=== PATIENT | female | born 1950 | race Two or more races ===

== ENCOUNTER → 2017-06-08 | Outpatient (CLI) | payer MEDICARE, OTHER ==
[2017-06-08 13:22] LABS: Basophils # (auto) 0.1 uL; Eosinophils # (auto) 0.3 uL; Eosinophils % (auto) 3.7 % (0.0-7.0); Hematocrit 45.1 % (36.0-46.0); Hemoglobin 15.2 g/dL (12.2-16.2); Lymphocytes # (auto) 2.4 uL; Lymphocytes % (auto) 35.4 % (10.0-50.0); Mean Corpuscular Hgb Conc. 33.8 g/dL (32.0-36.0); Mean Corpuscular Volume 97.6 fL (80.0-100.0); Monocytes # (auto) 0.5 uL; Monocytes % (auto) 7.8 % (0.0-12.0); Neutrophils # (auto) 3.6 uL; Neutrophils % (auto) 52.1 % (37.0-80.0); Platelet Count (auto) 291 10^3/uL (140-450); Red Blood Cells 4.62 10^6/uL (4.0-5.20); Red Cell Distribution Width 13.3 % (11.8-14.3); White Blood Cell 6.8 10^3/uL (4.4-10.8)
[2017-06-08 14:21] LABS: Albumin 3.8 g/dL (3.4-5.0); BUN/Creatinine Ratio 37.5; Bilirubin, Total 0.3 mg/dL (0.2-1.0); Calcium 8.9 mg/dL (8.5-10.1); Potassium 3.9 mmol/L (3.5-5.1); Total Protein 7.7 g/dL (6.4-8.2)
[2017-06-08 14:23] LABS: Urine Bacteria NONE SEEN /hpf (None Seen); Urine Blood 1+ /uL (Negative); Urine Mucus FEW (None Seen); Urine Specific Gravity 1.017 (1.001-1.035); Urine WBC <1 /hpf (0 - 5)
== END | disposition home or self-care (01) ==
LOC: LAB 12:34
PROVIDERS: ATTEND Physician Assistant
DX: Z00.01 Encounter for general adult medical examination with abnormal findings (principal); R42 Dizziness and giddiness; G43.909 Migraine, unspecified, not intractable, without status migrainosus; N20.0 Calculus of kidney; M17.12 Unilateral primary osteoarthritis, left knee; R01.1 Cardiac murmur, unspecified; R79.89 Other specified abnormal findings of blood chemistry; Z86.39 Personal history of other endocrine, nutritional and metabolic disease
CPT/HCPCS: 36415; 80053; 80061; 81001; 83036; 85025

== ENCOUNTER → 2017-06-16 | Outpatient (CLI) | payer MEDICARE, OTHER | END | disposition home or self-care (01) | LOC: LAB 10:53 | PROVIDERS: ATTEND Physician Assistant | DX: Z12.11 Encounter for screening for malignant neoplasm of colon (principal) | CPT/HCPCS: 82270 ==

== ENCOUNTER → 2017-07-15 | Outpatient (CLI) | payer MEDICARE, OTHER | END | disposition home or self-care (01) | LOC: XY 09:28 | PROVIDERS: ATTEND Internal Medicine | DX: I10 Essential (primary) hypertension (principal); E78.5 Hyperlipidemia, unspecified | CPT/HCPCS: 93306 ==

== ENCOUNTER 2017-10-14 07:48 | Inpatient (IN) | payer MEDICARE, OTHER ==
[~2017-10-14] VITALS: Ht 165.1 cm; Wt 67.0 kg
[2017-10-14] MEDS ORDERED: METOCLOPRAMIDE HCL 5MG/ml INJ 2ml VIAL IV ONE (09:30)
[2017-10-14] MEDS ORDERED: KETOROLAC TROMETH 30 MG/ML 1ML VIAL IV ONE (09:30)
[2017-10-14 09:37] LABS: Albumin 3.6 g/dL (3.4-5.0); Calcium 8.7 mg/dL (8.5-10.1); Potassium 4.1 mmol/L (3.5-5.1)
[2017-10-14] MEDS ORDERED: SODIUM CHLORIDE 0.9% 1,000 ML IVB ONE (09:37)
[2017-10-14 09:38] LABS: Urine Bacteria FEW /hpf (None Seen); Urine Blood 3+ /uL (Negative); Urine Mucus FEW (None Seen); Urine Specific Gravity 1.019 (1.001-1.035); Urine WBC 231 /hpf (0 - 5)
[2017-10-14 09:39] LABS: Bilirubin, Total 0.4 mg/dL (0.2-1.0); Total Protein 6.9 g/dL (6.4-8.2)
[2017-10-14 09:41] LABS: INR 0.93 (0.9-1.15); Partial Thromboplastin Time 28.5 sec (23.78-33.04)
[2017-10-14 09:56] LABS: Basophils # (auto) 0.1 uL; Basophils % (auto) 0.7 % (0.0-2.0); Eosinophils # (auto) 0.4 uL; Eosinophils % (auto) 3.3 % (0.0-7.0); Hematocrit 43.1 % (36.0-46.0); Hemoglobin 14.3 g/dL (12.2-16.2); Lymphocytes # (auto) 1.9 uL; Lymphocytes % (auto) 15.7 % (10.0-50.0); Mean Corpuscular Hemoglobin 33.1 pg (28.0-32.0); Mean Corpuscular Hgb Conc. 33.1 g/dL (32.0-36.0); Mean Corpuscular Volume 99.8 fL (80.0-100.0); Monocytes # (auto) 0.7 uL; Monocytes % (auto) 5.7 % (0.0-12.0); Neutrophils # (auto) 8.9 uL; Neutrophils % (auto) 74.6 % (37.0-80.0); Platelet Count (auto) 239 10^3/uL (140-450); Red Blood Cells 4.32 10^6/uL (4.0-5.20); Red Cell Distribution Width 13.1 % (11.8-14.3)
[2017-10-14 09:58] LABS: Magnesium 2.4 mg/dL (1.6-2.6)
[2017-10-14] MEDS ORDERED: MORPHINE SULFATE 4 MG/ML SYR/VIAL IV ONE (10:00)
[2017-10-14] MEDS ORDERED: cefTRIAXone 1GM/10ml IVPUSH 10 ML IV ONE ×2 (11:45→13:00)
[2017-10-14] MEDS ORDERED: NITROGLYCERIN 0.4 MG SL TAB SL PRN (13:00)
[2017-10-14] MEDS ORDERED: TEMAZEPAM 15 MG CAP PO PRN (13:00)
[2017-10-14] MEDS ORDERED: MORPHINE SULF INJ 2 MG/ML SYRINGE 1ML IV PRN (13:00)
[2017-10-14] MEDS ORDERED: ACETAMINOPHEN 500 MG TAB PO PRN (13:00)
[2017-10-14] MEDS ORDERED: HYDROcodone-ACET 5/325MG TAB PO PRN (13:00)
[2017-10-14] MEDS ORDERED: LORazepam 0.5 MG TAB PO PRN (13:00)
[2017-10-14] MEDS: SODIUM CHLORIDE 0.9% 1,000 ML IV SCH (13:15)
[2017-10-14] MEDS ORDERED: DIVA250T51 PO (14:56)
[2017-10-14] MEDS ORDERED: ACET5SOL5 PO (14:56)
[2017-10-14] MEDS ORDERED: RIZA10TA24 OR (14:56)
[2017-10-14] MEDS ORDERED: PROP60CA34 PO (14:56)
[2017-10-14] MEDS ORDERED: ROSU20TA14 PO (14:56)
[2017-10-14] MEDS ORDERED: DIAZ2TAB PO (14:56)
[2017-10-14] MEDS ORDERED: MANNITOL FTV 25% 12.5 GM/50 ML 50 ML IV ONE ×2 (18:15→19:45)
[2017-10-14 18:30] VITALS: BP 124/69
[2017-10-14] MEDS: TAMSULOSIN HYDROCHLORIDE 0.4 MG CAP PO SCH (19:45)
[2017-10-14 21:59] VITALS: BP 149/83
[2017-10-14 22:00] VITALS: BP 105/55
[2017-10-15] MEDS: SODIUM CHLORIDE 0.9% 1,000 ML IV SCH ×3 (03:42→20:13)
[2017-10-15] MEDS: MORPHINE SULF INJ 2 MG/ML SYRINGE 1ML IV PRN ×3 (04:18→18:54)
[2017-10-15 05:00] VITALS: BP 112/60
[2017-10-15 07:02] LABS: Eosinophils # (auto) 0.2 uL; Hemoglobin 12.9 g/dL (12.2-16.2); Lymphocytes # (auto) 2.2 uL; Monocytes # (auto) 0.7 uL; Nucleated Red Blood Cells % 0.1 %; White Blood Cell 6.5 10^3/uL (4.4-10.8)
[2017-10-15 07:04] LABS: Basophils # (auto) 0 uL; Basophils % (auto) 0.7 % (0.0-2.0); Eosinophils % (auto) 2.9 % (0.0-7.0); Hematocrit 36.7 % (36.0-46.0); Lymphocytes % (auto) 33.3 % (10.0-50.0); Mean Corpuscular Hgb Conc. 35.1 g/dL (32.0-36.0); Mean Corpuscular Volume 99.8 fL (80.0-100.0); Monocytes % (auto) 11.3 % (0.0-12.0); Neutrophils # (auto) 3.4 uL; Neutrophils % (auto) 51.8 % (37.0-80.0); Platelet Count (auto) 192 10^3/uL (140-450); Red Blood Cells 3.67 10^6/uL (4.0-5.20); Red Cell Distribution Width 13.1 % (11.8-14.3)
[2017-10-15 07:33] LABS: Albumin 3.1 g/dL (3.4-5.0); BUN/Creatinine Ratio 44.9; Bilirubin, Total 0.4 mg/dL (0.2-1.0); Potassium 3.8 mmol/L (3.5-5.1); Total Protein 5.9 g/dL (6.4-8.2)
[2017-10-15 07:55] VITALS: BP 119/63
[2017-10-15 09:00] VITALS: BP 119/63
[2017-10-15] MEDS: cefTRIAXone 1GM/10ml IVPUSH 10 ML IV SCH (09:46)
[2017-10-15] MEDS: PANTOPRAZOLE 40 MG TAB PO SCH (09:46)
[2017-10-15] MEDS ORDERED: MANNITOL FTV 25% 12.5 GM/50 ML 50 ML IV ONE (10:30)
[2017-10-15] MEDS: KETOROLAC TROMETH 30 MG/ML 1ML VIAL IV PRN ×2 (10:36→22:21)
[2017-10-15 13:00] VITALS: BP 132/58
[2017-10-15] MEDS ORDERED: DIAZEPAM 2 MG TAB PO PRN (16:30)
[2017-10-15 16:56] VITALS: BP 137/73
[2017-10-15] MEDS: TAMSULOSIN HYDROCHLORIDE 0.4 MG CAP PO SCH (18:53)
[2017-10-15] MEDS: PROMETHAZINE HCL 25 MG/ML 1ML IV PRN (18:54)
[2017-10-15 22:00] VITALS: BP 134/69
[2017-10-15] MEDS: PROPRANOLOL HCL 20 MG TAB PO SCH (22:00)
[2017-10-16] MEDS: KETOROLAC TROMETH 30 MG/ML 1ML VIAL IV PRN ×4 (03:27→22:15)
[2017-10-16 04:31] VITALS: BP 136/78
[2017-10-16] MEDS: MORPHINE SULF INJ 2 MG/ML SYRINGE 1ML IV PRN ×4 (05:13→18:50)
[2017-10-16] MEDS: SODIUM CHLORIDE 0.9% 1,000 ML IV SCH ×3 (05:15→23:50)
[2017-10-16 09:24] VITALS: BP 131/75
[2017-10-16] MEDS: cefTRIAXone 1GM/10ml IVPUSH 10 ML IV SCH (09:31)
[2017-10-16] MEDS: PANTOPRAZOLE 40 MG TAB PO SCH (09:33)
[2017-10-16] MEDS: PROPRANOLOL HCL 20 MG TAB PO SCH ×2 (09:33→21:41)
[2017-10-16 13:34] VITALS: BP 157/77
[2017-10-16 17:24] VITALS: BP 124/71
[2017-10-16] MEDS: PROMETHAZINE HCL 25 MG/ML 1ML IV PRN ×2 (18:49→23:47)
[2017-10-16] MEDS: TAMSULOSIN HYDROCHLORIDE 0.4 MG CAP PO SCH (18:49)
[2017-10-16] MEDS ORDERED: MORPHINE SULF INJ 2 MG/ML SYRINGE 1ML IV PRN (21:00)
[2017-10-16 22:00] VITALS: BP 160/73
[2017-10-17] MEDS: KETOROLAC TROMETH 30 MG/ML 1ML VIAL IV PRN ×2 (04:34→09:48)
[2017-10-17 05:00] VITALS: BP 134/72
[2017-10-17] MEDS ORDERED: ceFAZolin 1GM/50ML 50 ML IV ONE (07:10)
[2017-10-17] MEDS ORDERED: MIDAZOLAM HCL 1MG/1ML-2 ML VIAL ONE (07:25)
[2017-10-17] MEDS ORDERED: PROPOFOL 10 MG/ML 20 ML IV ONE (07:26)
[2017-10-17] MEDS ORDERED: ETOMIDATE (2MG/ML) 20ML VIAL IV ONE (07:27)
[2017-10-17] MEDS ORDERED: fentaNYL CITRATE 100 MCG/2 ML VL ONE (07:36)
[2017-10-17] MEDS ORDERED: ePHEDrine SULFATE 50 MG/ML AMP ONE (07:49)
[2017-10-17] MEDS ORDERED: LIDOCAINE 2% (LOCAL ANESTH.) PF 5ml SDV ONE (07:49)
[2017-10-17] MEDS ORDERED: DEXAMETHASONE SOD PHOS 10MG/1ML VIAL INJ ONE (07:49)
[2017-10-17] MEDS ORDERED: HYDROmorphone HCL 2 MG/ML VL IV PRN (08:15)
[2017-10-17] MEDS ORDERED: ONDANSETRON HCL 4 MG/2 ML VIAL IV ONE (08:15)
[2017-10-17] MEDS ORDERED: LABETALOL HCL 5 MG/ML 4ML SYRINGE IV PRN (08:15)
[2017-10-17] MEDS ORDERED: ePHEDrine SULFATE 50 MG/ML AMP IV PRN (08:15)
[2017-10-17] MEDS: cefTRIAXone 1GM/10ml IVPUSH 10 ML IV SCH (09:47)
[2017-10-17] MEDS: PANTOPRAZOLE 40 MG TAB PO SCH (09:49)
[2017-10-17] MEDS: PROPRANOLOL HCL 20 MG TAB PO SCH (09:49)
[2017-10-17 09:57] VITALS: BP 145/71
[2017-10-17] MEDS: SODIUM CHLORIDE 0.9% 1,000 ML IV SCH (10:57)
[2017-10-17 12:28] VITALS: BP 136/72
== END 2017-10-17 15:15 | disposition home or self-care (01) | DRG 691 ==
LOC: ER 07:48 → TELE 07:49 → TELE-WESTW 18:25
PROVIDERS: ADMIT Internal Medicine; ATTEND Family Medicine
PROC: 0TF6XZZ Fragmentation in Right Ureter, External Approach (ICD-10-PCS; principal; 2017-10-17 07:21)
DX: N13.2 Hydronephrosis with renal and ureteral calculous obstruction (principal); F17.210 Nicotine dependence, cigarettes, uncomplicated; N39.0 Urinary tract infection, site not specified; I35.0 Nonrheumatic aortic (valve) stenosis; I70.8 Atherosclerosis of other arteries; M19.079 Primary osteoarthritis, unspecified ankle and foot; K57.30 Diverticulosis of large intestine without perforation or abscess without bleeding; M47.896 Other spondylosis, lumbar region; M51.16 Intervertebral disc disorders with radiculopathy, lumbar region; Z82.3 Family history of stroke; Z82.49 Family history of ischemic heart disease and other diseases of the circulatory system; Z82.61 Family history of arthritis; Z83.3 Family history of diabetes mellitus; Z88.2 Allergy status to sulfonamides
CPT/HCPCS: 36415; 71045; 74176; 80053; 81001; 83690; 83735; 85025; 85610; 85730; 87070; 87086; 87205; 96361; 96374; 96375; J0690; J0696; J1100; J1885; J2001; J2250; J2704

== ENCOUNTER → 2018-02-03 | Outpatient (CLI) | payer MEDICARE, OTHER ==
[~2018-02-03] MED LIST: ACET5SOL5 PO; DIAZ2TAB PO; DIVA250T51 PO; PROP60CA34 PO; RIZA10TA24 OR; ROSU20TA14 PO
== END | disposition home or self-care (01) ==
LOC: XYW 09:51
PROVIDERS: ATTEND Internal Medicine
DX: I35.0 Nonrheumatic aortic (valve) stenosis (principal)
CPT/HCPCS: 93306

== ENCOUNTER → 2018-11-09 | Outpatient (CLI) | payer MEDICARE, OTHER ==
[2018-11-09 11:45] LABS: Basophils # (auto) 0.1 uL; Basophils % (auto) 0.9 % (0.0-2.0); Eosinophils # (auto) 0.5 uL; Eosinophils % (auto) 6.4 % (0.0-7.0); Hematocrit 41.4 % (36.0-46.0); Hemoglobin 14.1 g/dL (12.2-16.2); Lymphocytes # (auto) 2.1 uL; Lymphocytes % (auto) 26.3 % (10.0-50.0); Mean Corpuscular Volume 99.9 fL (80.0-100.0); Monocytes # (auto) 0.7 uL; Monocytes % (auto) 8.2 % (0.0-12.0); Neutrophils # (auto) 4.7 uL; Neutrophils % (auto) 58.2 % (37.0-80.0); Nucleated Red Blood Cells % 0.1 %; Platelet Count (auto) 221 10^3/uL (140-450); Red Blood Cells 4.14 10^6/uL (4.0-5.20); Red Cell Distribution Width 12.7 % (11.8-14.3)
[2018-11-09 12:16] LABS: Albumin 3.6 g/dL (3.4-5.0); BUN/Creatinine Ratio 46.7; Calcium 8.9 mg/dL (8.5-10.1); Potassium 4.1 mmol/L (3.5-5.1)
[2018-11-09 12:21] LABS: Bilirubin, Total 0.4 mg/dL (0.2-1.0)
== END | disposition home or self-care (01) ==
LOC: LAB 11:08
PROVIDERS: ATTEND Physician Assistant
DX: I35.0 Nonrheumatic aortic (valve) stenosis (principal); E78.5 Hyperlipidemia, unspecified; I10 Essential (primary) hypertension; R01.1 Cardiac murmur, unspecified
CPT/HCPCS: 36415; 80053; 80061; 85025

== ENCOUNTER → 2018-12-29 | Outpatient (CLI) | payer MEDICARE, OTHER | END | disposition home or self-care (01) | LOC: XYW 11:04 | PROVIDERS: ATTEND Internal Medicine | DX: I35.1 Nonrheumatic aortic (valve) insufficiency (principal); I10 Essential (primary) hypertension | CPT/HCPCS: 93306 ==

== ENCOUNTER → 2019-05-12 | Outpatient (CLI) | payer MEDICARE, OTHER | END | disposition home or self-care (01) | LOC: XYW 09:42 | PROVIDERS: ATTEND Internal Medicine | DX: I70.0 Atherosclerosis of aorta (principal); I35.0 Nonrheumatic aortic (valve) stenosis; I10 Essential (primary) hypertension | CPT/HCPCS: 93306 ==

== ENCOUNTER → 2019-11-29 | Outpatient (CLI) | payer MEDICARE, OTHER ==
[~2019-11-29] MED LIST changes: -RIZA10TA24 OR; +RIZA10TA50 OR
[2019-11-29 12:02] LABS: Basophils # (auto) 0.1 10 ^3/uL (0-0.2); Basophils % (auto) 0.7 % (0.0-2.0); Eosinophils # (auto) 0.5 10 ^3/uL (0-0.8); Eosinophils % (auto) 7.4 % (0.0-7.0); Hematocrit 40.8 % (36.0-46.0); Hemoglobin 13.9 g/dL (12.2-16.2); Lymphocytes # (auto) 1.9 10 ^3/uL (0.4-5.4); Lymphocytes % (auto) 25.8 % (10.0-50.0); Mean Corpuscular Hgb Conc. 34.1 g/dL (32.0-36.0); Mean Corpuscular Volume 96.8 fL (80.0-100.0); Monocytes # (auto) 0.6 10 ^3/uL (0-1.3); Monocytes % (auto) 8.3 % (0.0-12.0); Neutrophils # (auto) 4.3 10 ^3/uL (1.6-8.6); Neutrophils % (auto) 57.8 % (37.0-80.0); Nucleated Red Blood Cells % 0.1 %; Platelet Count (auto) 305 10^3/uL (140-450); Red Blood Cells 4.22 10^6/uL (4.0-5.20); Red Cell Distribution Width 13.4 % (11.8-14.3); White Blood Cell 7.4 10^3/uL (4.4-10.8)
[2019-11-29 12:20] LABS: Potassium 4.1 mmol/L (3.5-5.1)
[2019-11-29 12:30] LABS: Albumin 3.5 g/dL (3.4-5.0); BUN/Creatinine Ratio 44.8; Bilirubin, Total 0.4 mg/dL (0.2-1.0); Calcium 8.8 mg/dL (8.5-10.1); Total Protein 6.9 g/dL (6.4-8.2)
== END | disposition home or self-care (01) ==
LOC: LAB 11:22
PROVIDERS: ATTEND Physician Assistant
DX: I10 Essential (primary) hypertension (principal); G43.909 Migraine, unspecified, not intractable, without status migrainosus; E78.5 Hyperlipidemia, unspecified; R01.1 Cardiac murmur, unspecified
CPT/HCPCS: 36415; 80053; 80061; 85025

== ENCOUNTER → 2020-04-25 | Outpatient (CLI) | payer MEDICARE, OTHER ==
[~2020-04-25] MED LIST changes: +DIVA250T4 PO; -DIVA250T51 PO
== END | disposition home or self-care (01) ==
LOC: XYW 11:19
PROVIDERS: ATTEND Internal Medicine
DX: I08.3 Combined rheumatic disorders of mitral, aortic and tricuspid valves (principal); I70.0 Atherosclerosis of aorta
CPT/HCPCS: 93306

== ENCOUNTER 2020-07-04 07:08 | Day surgery (SDC) | payer MEDICARE, OTHER ==
[2020-07-02 10:02] LABS: Basophils # (auto) 0.1 10 ^3/uL (0-0.2); Basophils % (auto) 1.1 % (0.0-2.0); Eosinophils # (auto) 0.9 10 ^3/uL (0-0.8); Eosinophils % (auto) 10.9 % (0.0-7.0); Hematocrit 41.7 % (36.0-46.0); Hemoglobin 14.2 g/dL (12.2-16.2); Lymphocytes # (auto) 2.9 10 ^3/uL (0.4-5.4); Lymphocytes % (auto) 37.5 % (10.0-50.0); Mean Corpuscular Hemoglobin 32.8 pg (28.0-32.0); Mean Corpuscular Hgb Conc. 34.2 g/dL (32.0-36.0); Monocytes # (auto) 0.8 10 ^3/uL (0-1.3); Monocytes % (auto) 10.3 % (0.0-12.0); Neutrophils # (auto) 3.1 10 ^3/uL (1.6-8.6); Neutrophils % (auto) 40.2 % (37.0-80.0); Nucleated Red Blood Cells % 0.1 %; Platelet Count (auto) 291 10^3/uL (140-450); Red Blood Cells 4.34 10^6/uL (4.0-5.20); Red Cell Distribution Width 13.9 % (11.8-14.3); White Blood Cell 7.8 10^3/uL (4.4-10.8)
[2020-07-02 10:13] LABS: INR 0.97 (0.9-1.15); Partial Thromboplastin Time 26.7 sec (23.0-31.2)
[2020-07-02 10:24] LABS: Potassium 5.2 mmol/L (3.5-5.1)
[2020-07-02 10:33] LABS: Albumin 3.8 g/dL (3.4-5.0); Bilirubin, Total 0.5 mg/dL (0.2-1.0); Calcium 9.4 mg/dL (8.5-10.1); Total Protein 7.3 g/dL (6.4-8.2)
[~2020-07-04] VITALS: Ht 160 cm; Wt 61.2 kg
[~2020-07-04 07:08] MED LIST changes: -ACET5SOL5 PO; -DIAZ2TAB PO; +FREM225I2 SC; +MECL25TA18 PO; +OMEP20TA PO; +ONDA-144 TL; +PROP40TA59 PO; -PROP60CA34 PO; -RIZA10TA50 OR; +RIZA10TA50 PO; +TRAM50TA2 PO
[2020-07-04] MEDS ORDERED: ALPRAZolam 0.5 MG TAB PO ONE (08:00)
[2020-07-04] MEDS ORDERED: ALPRAZolam 0.5 MG TAB ONE (08:16)
[2020-07-04] MEDS ORDERED: IODIXANOL 320MG/ML 100ML BTL IV ONE (08:22)
[2020-07-04] MEDS ORDERED: LIDOCAINE 2%HCL (LOCAL ANESTH.) INJ 20ML MDV ONE (08:22)
[2020-07-04] MEDS ORDERED: ANGIOMAX 250 MG VIAL IV ONE (08:37)
[2020-07-04] MEDS ORDERED: fentaNYL CITRATE 100 MCG/2 ML VL ONE ×2 (08:37→09:59)
[2020-07-04] MEDS ORDERED: HEPARIN SODIUM (PORCINE) 5000 UNITS/ML 1ML VIAL ONE ×2 (08:37→09:26)
[2020-07-04] MEDS ORDERED: VERAPAMIL 2.5MG/ML INJ 2ML VIAL IV ONE (08:37)
[2020-07-04] MEDS ORDERED: SODIUM CHL 0.9% 0 ML ONE (08:38)
[2020-07-04] MEDS ORDERED: MIDAZOLAM HCL 1MG/1ML-2 ML VIAL ONE ×3 (08:38→10:00)
[2020-07-04] MEDS ORDERED: diphenhdrAMINE HCL 50 MG/1 ML VL ONE (09:05)
[2020-07-04] MEDS ORDERED: ACETAMINOPHEN 500 MG TAB PO PRN (11:00)
[2020-07-04] MEDS ORDERED: ONDANSETRON HCL 4 MG/2 ML VIAL IV PRN (11:00)
== END 2020-07-04 14:52 | disposition home or self-care (01) ==
LOC: CATH 07:08
PROVIDERS: ATTEND Internal Medicine
DX: I25.10 Atherosclerotic heart disease of native coronary artery without angina pectoris (principal); I35.0 Nonrheumatic aortic (valve) stenosis; I10 Essential (primary) hypertension; E78.5 Hyperlipidemia, unspecified; F17.210 Nicotine dependence, cigarettes, uncomplicated; Z20.822 Contact with and (suspected) exposure to COVID-19; Z98.890 Other specified postprocedural states; Z79.899 Other long term (current) drug therapy; Z88.8 Allergy status to other drugs, medicaments and biological substances; Z88.5 Allergy status to narcotic agent
CPT/HCPCS: 36415; 80053; 85025; 85610; 85730; 93460; 93571; C1751; C1760; C1769; C1894; J1200; J1644; J2250; J3010; J7030; Q9967; U0003; 99152; 99153

== ENCOUNTER → 2021-02-11 | Outpatient (CLI) | payer MEDICARE, OTHER ==
[2021-02-11 15:19] LABS: Basophils # (auto) 0.1 10 ^3/uL (0-0.2); Basophils % (auto) 0.9 % (0.0-2.0); Eosinophils # (auto) 0.8 10 ^3/uL (0-0.8); Eosinophils % (auto) 9.5 % (0.0-7.0); Hematocrit 40.8 % (36.0-46.0); Hemoglobin 13.6 g/dL (12.2-16.2); Lymphocytes # (auto) 2.6 10 ^3/uL (0.4-5.4); Lymphocytes % (auto) 31.7 % (10.0-50.0); Mean Corpuscular Hemoglobin 31.6 pg (28.0-32.0); Mean Corpuscular Hgb Conc. 33.3 g/dL (32.0-36.0); Mean Corpuscular Volume 95.1 fL (80.0-100.0); Monocytes # (auto) 0.9 10 ^3/uL (0-1.3); Monocytes % (auto) 10.4 % (0.0-12.0); Neutrophils # (auto) 3.9 10 ^3/uL (1.6-8.6); Neutrophils % (auto) 47.5 % (37.0-80.0); Red Blood Cells 4.29 10^6/uL (4.0-5.20); Red Cell Distribution Width 13.5 % (11.8-14.3); White Blood Cell 8.2 10^3/uL (4.4-10.8)
[2021-02-11 15:36] LABS: Albumin 3.8 g/dL (3.4-5.0); Potassium 4.7 mmol/L (3.5-5.1)
[2021-02-11 15:54] LABS: BUN/Creatinine Ratio 44.1; Bilirubin, Total 0.4 mg/dL (0.2-1.0); Calcium 9.2 mg/dL (8.5-10.1); Total Protein 6.8 g/dL (6.4-8.2)
== END | disposition home or self-care (01) ==
LOC: LAB 14:48
PROVIDERS: ATTEND Nurse Practitioner Family
DX: I10 Essential (primary) hypertension (principal); E78.5 Hyperlipidemia, unspecified; I25.10 Atherosclerotic heart disease of native coronary artery without angina pectoris
CPT/HCPCS: 36415; 80053; 80061; 85025

== ENCOUNTER → 2021-03-07 | Outpatient (CLI) | payer MEDICARE, OTHER ==
[2021-03-07 14:52] LABS: BUN/Creatinine Ratio 44.1; Potassium 4.6 mmol/L (3.5-5.1)
== END | disposition home or self-care (01) ==
LOC: LAB 13:07
DX: I35.0 Nonrheumatic aortic (valve) stenosis (principal)
CPT/HCPCS: 36415; 80048

== ENCOUNTER 2021-11-29 16:38 | Emergency (ER) | payer MEDICARE, OTHER ==
[~2021-11-29] VITALS: Ht 160 cm; Wt 63.2 kg
[2021-11-29 19:22] LABS: Urine Bacteria FEW /hpf (None Seen); Urine Blood 2+ /uL (Negative); Urine Specific Gravity 1.005 (1.001-1.035); Urine WBC 28 /hpf (0 - 5)
[2021-11-29] MEDS ORDERED: PHENAZOPYRIDINE HCL 100 MG TAB PO ONE (21:45)
[2021-11-29] MEDS ORDERED: IBUPROFEN 600 MG TAB PO ONE (21:45)
[2021-11-30] MEDS ORDERED: CEPH-510 PO (00:43)
[2021-11-30] MEDS ORDERED: TAM04C PO (00:43)
[2021-11-30] MEDS ORDERED: CEPHALEXIN 250 MG CAP PO ONE (00:45)
[2021-11-30 01:05] VITALS: BP 154/85
== END 2021-11-30 01:11 | disposition home or self-care (01) ==
LOC: ER 16:38
DX: N39.0 Urinary tract infection, site not specified (principal); N20.0 Calculus of kidney; G89.29 Other chronic pain; M54.9 Dorsalgia, unspecified; F17.210 Nicotine dependence, cigarettes, uncomplicated; Z90.89 Acquired absence of other organs; Z79.899 Other long term (current) drug therapy; Z88.5 Allergy status to narcotic agent; Z88.2 Allergy status to sulfonamides; Z88.8 Allergy status to other drugs, medicaments and biological substances
CPT/HCPCS: 74176; 81001

== ENCOUNTER → 2021-12-30 | Outpatient (CLI) | payer MEDICARE, OTHER ==
[~2021-12-30] MED LIST changes: +CEPH-510 PO; +TAM04C PO
== END | disposition home or self-care (01) ==
LOC: XYW 12:46
PROVIDERS: ATTEND Internal Medicine
DX: I08.2 Rheumatic disorders of both aortic and tricuspid valves (principal); Z95.2 Presence of prosthetic heart valve
CPT/HCPCS: 93306

== ENCOUNTER → 2021-12-30 | Outpatient (CLI) | payer MEDICARE, OTHER ==
[2021-12-30 14:15] LABS: Basophils # (auto) 0.1 10 ^3/uL (0-0.2); Eosinophils # (auto) 0.2 10 ^3/uL (0-0.8); Eosinophils % (auto) 2.2 % (0.0-7.0); Hematocrit 34.8 % (36.0-46.0); Hemoglobin 11.3 g/dL (12.2-16.2); Lymphocytes # (auto) 2.1 10 ^3/uL (0.4-5.4); Lymphocytes % (auto) 18.2 % (10.0-50.0); Mean Corpuscular Hemoglobin 29.7 pg (28.0-32.0); Mean Corpuscular Hgb Conc. 32.4 g/dL (32.0-36.0); Mean Corpuscular Volume 91.6 fL (80.0-100.0); Monocytes # (auto) 1.1 10 ^3/uL (0-1.3); Monocytes % (auto) 9.3 % (0.0-12.0); Neutrophils # (auto) 7.8 10 ^3/uL (1.6-8.6); Neutrophils % (auto) 69.3 % (37.0-80.0); Nucleated Red Blood Cells % 0.1 %; Red Cell Distribution Width 15.5 % (11.8-14.3); White Blood Cell 11.3 10^3/uL (4.4-10.8)
[2021-12-30 14:59] LABS: Albumin 2.9 g/dL (3.4-5.0); Calcium 8.6 mg/dL (8.5-10.1); Potassium 3.5 mmol/L (3.5-5.1)
[2021-12-30 15:06] LABS: BUN/Creatinine Ratio 37.8; Bilirubin, Total 0.5 mg/dL (0.2-1.0); Total Protein 6.6 g/dL (6.4-8.2)
== END | disposition home or self-care (01) ==
LOC: LAB 13:56
PROVIDERS: ATTEND Nurse Practitioner Family
DX: I10 Essential (primary) hypertension (principal); E78.5 Hyperlipidemia, unspecified
CPT/HCPCS: 36415; 80053; 80061; 85025

== ENCOUNTER 2022-02-06 06:33 | Inpatient (IN) | payer MEDICARE, OTHER ==
[2022-02-05 15:40] LABS: Basophils # (auto) 0.1 10 ^3/uL (0-0.2); Basophils % (auto) 1.4 % (0.0-2.0); Eosinophils # (auto) 0.2 10 ^3/uL (0-0.8); Eosinophils % (auto) 2.5 % (0.0-7.0); Hematocrit 36.6 % (36.0-46.0); Hemoglobin 11.9 g/dL (12.2-16.2); Lymphocytes # (auto) 2.3 10 ^3/uL (0.4-5.4); Lymphocytes % (auto) 31.2 % (10.0-50.0); Mean Corpuscular Hemoglobin 28.6 pg (28.0-32.0); Mean Corpuscular Hgb Conc. 32.7 g/dL (32.0-36.0); Mean Corpuscular Volume 87.5 fL (80.0-100.0); Monocytes # (auto) 0.5 10 ^3/uL (0-1.3); Monocytes % (auto) 6.6 % (0.0-12.0); Neutrophils # (auto) 4.2 10 ^3/uL (1.6-8.6); Neutrophils % (auto) 58.3 % (37.0-80.0); Nucleated Red Blood Cells % 0.1 %; Red Blood Cells 4.18 10^6/uL (4.0-5.20); Red Cell Distribution Width 16.4 % (11.8-14.3); White Blood Cell 7.3 10^3/uL (4.4-10.8)
[2022-02-05 16:02] LABS: INR 0.95 (0.9-1.15); Partial Thromboplastin Time 26.5 sec (24.6-33.4); Urine Bacteria NONE SEEN /hpf (None Seen); Urine Blood Negative /uL (Negative); Urine Hyaline Cast FEW /lpf (0 - 2); Urine Mucus FEW (None Seen); Urine Specific Gravity 1.025 (1.001-1.035); Urine WBC 3 /hpf (0 - 5)
[2022-02-05 16:16] LABS: Albumin 3.6 g/dL (3.4-5.0); BUN/Creatinine Ratio 37.5; Calcium 9.1 mg/dL (8.5-10.1)
[2022-02-05 16:19] LABS: Bilirubin, Total 0.3 mg/dL (0.2-1.0); Total Protein 7.3 g/dL (6.4-8.2)
[~2022-02-06] VITALS: Ht 160 cm; Wt 66.0 kg
[~2022-02-06 06:33] MED LIST changes: -CEPH-510 PO; -DIVA250T4 PO; -FREM225I2 SC; +OXYC325T14 PO; -TAM04C PO; -TRAM50TA2 PO
[2022-02-06] MEDS ORDERED: CHLORHEXIDINE 4% TOPICAL soln 118ml TOP ONE (06:56)
[2022-02-06] MEDS ORDERED: NITROGLYCERIN 0.4 MG SL TAB SL PRN (07:15)
[2022-02-06] MEDS ORDERED: RIZATRIPTAN BENZOATE 10 MG PO PRN (07:15)
[2022-02-06] MEDS ORDERED: HYDROmorphone HCL 2 MG/ML VL/or syr IV PRN (07:15)
[2022-02-06] MEDS ORDERED: D5W/SOD CHL 0.45% 1,000 ML IV SCH (07:15)
[2022-02-06] MEDS ORDERED: HYDROcodone-ACET 10/325MG TAB PO PRN (07:15)
[2022-02-06] MEDS: ceFAZolin 1GM/50ML 50 ML IV SCH ×2 (07:15→16:57)
[2022-02-06] MEDS ORDERED: MILK OF MAGNESIA 30ML SUSP PO PRN (07:15)
[2022-02-06] MEDS ORDERED: MORPHINE SULFATE INJ 2 MG/ml SYRG IV PRN (07:15)
[2022-02-06] MEDS ORDERED: ceFAZolin 1GM/50ML 100 ML IV ONE (07:29)
[2022-02-06] MEDS ORDERED: MIDAZOLAM HCL 2MG/2ML 2ml VIAL (1mg/ml) ONE ×3 (07:37→12:39)
[2022-02-06] MEDS ORDERED: SUGAMMADEX 200mg/2ml Vial (100MG/ML) IV ONE (07:44)
[2022-02-06] MEDS ORDERED: fentaNYL CITRATE 100 MCG/2 ML VL ONE ×3 (07:47→10:22)
[2022-02-06] MEDS ORDERED: PROPOFOL 10 MG/ML 20 ML IV ONE (07:55)
[2022-02-06] MEDS ORDERED: NITROGLYCERIN 5MG/ML 10ML VIAL IV ONE (09:15)
[2022-02-06] MEDS: ONDANSETRON ODT 4 MG TAB PO SCH ×3 (10:00→17:51)
[2022-02-06] MEDS: PROPRANOLOL HCL 20 MG TAB PO SCH ×3 (10:00→23:19)
[2022-02-06] MEDS: PANTOPRAZOLE 40 MG TAB PO SCH ×2 (11:30→16:56)
[2022-02-06] MEDS ORDERED: ONDANSETRON HCL 4 MG/2 ML VIAL IV PRN (12:15)
[2022-02-06] MEDS ORDERED: MORPHINE SULFATE 4 MG/ML SYR/VIAL IV PRN ×3 (12:15→14:00)
[2022-02-06] MEDS ORDERED: MORPHINE SULFATE INJ 2 MG/ml SYRG ONE ×3 (12:17→14:38)
[2022-02-06] MEDS ORDERED: diphenhdrAMINE HCL 50 MG/1 ML VL ONE (13:12)
[2022-02-06] MEDS ORDERED: diphenhdrAMINE HCL 50 MG/1 ML VL IV ONE (13:15)
[2022-02-06] MEDS ORDERED: MORPHINE SULFATE 4 MG/ML SYR/VIAL ONE (13:28)
[2022-02-06] MEDS: MECLIZINE HCL 25 MG TAB PO SCH ×3 (14:00→22:00)
[2022-02-06] MEDS ORDERED: CYCLOBENZAPRINE HCL 10 MG TAB PO SCH (14:00)
[2022-02-06] MEDS ORDERED: ROCURONIUM 10MG/ML 10ML VIAL IV ONE (14:54)
[2022-02-06] MEDS: D5W/SOD CHL 0.45%/KCL 20MEQ 1,000 ML IV SCH (15:40)
[2022-02-06] MEDS ORDERED: oxyCODONE ER 10 MG TAB PO PRN (15:45)
[2022-02-06] MEDS: MORPHINE SULFATE 4 MG/ML SYR/VIAL IV PRN ×2 (16:20→22:29)
[2022-02-06] MEDS: CARISOPRODOL 350 MG TAB PO SCH ×2 (16:22→20:58)
[2022-02-06 16:35] VITALS: BP 121/72
[2022-02-06] MEDS: oxyCODONE ER 20 MG TAB PO SCH ×2 (16:58→20:58)
[2022-02-06 19:50] VITALS: BP 114/70
[2022-02-06 22:00] VITALS: BP 145/61
[2022-02-06] MEDS: ATORVASTATIN 20 MG TAB PO SCH (22:27)
[2022-02-07] MEDS: MORPHINE SULFATE 4 MG/ML SYR/VIAL IV PRN ×4 (02:16→18:08)
[2022-02-07 05:07] VITALS: BP 125/71
[2022-02-07] MEDS: MECLIZINE HCL 25 MG TAB PO SCH ×3 (05:49→22:00)
[2022-02-07] MEDS: CARISOPRODOL 350 MG TAB PO SCH ×3 (05:50→22:19)
[2022-02-07] MEDS: PANTOPRAZOLE 40 MG TAB PO SCH ×3 (05:50→18:07)
[2022-02-07] MEDS: D5W/SOD CHL 0.45%/KCL 20MEQ 1,000 ML IV SCH ×2 (06:19→18:07)
[2022-02-07] MEDS: oxyCODONE ER 20 MG TAB PO SCH ×2 (09:15→22:19)
[2022-02-07] MEDS: ONDANSETRON ODT 4 MG TAB PO SCH ×2 (09:16→22:19)
[2022-02-07] MEDS: PROPRANOLOL HCL 20 MG TAB PO SCH (09:21)
[2022-02-07 09:40] VITALS: BP 133/69
[2022-02-07] MEDS ORDERED: DOCUSATE SOD 100 MG CAP PO ONE (11:00)
[2022-02-07 12:30] VITALS: BP 114/64
[2022-02-07] MEDS: ACETAMINOPHEN 325 MG TAB PO PRN (15:58)
[2022-02-07 17:00] VITALS: BP 116/70
[2022-02-07] MEDS: Ensure HIGH Protein Chocolate 8oz Bottle PO SCH (18:12)
[2022-02-07 21:44] VITALS: BP 145/74
[2022-02-07] MEDS: ATORVASTATIN 20 MG TAB PO SCH (22:18)
[2022-02-07] MEDS: DOCUSATE SOD 100 MG CAP PO SCH (22:18)
[2022-02-08] MEDS: PROPRANOLOL HCL 20 MG TAB PO SCH ×2 (00:06→10:31)
[2022-02-08] MEDS: MORPHINE SULFATE 4 MG/ML SYR/VIAL IV PRN ×6 (01:00→23:12)
[2022-02-08 04:48] VITALS: BP 128/74
[2022-02-08] MEDS: MECLIZINE HCL 25 MG TAB PO SCH ×3 (06:00→21:56)
[2022-02-08] MEDS: PANTOPRAZOLE 40 MG TAB PO SCH ×3 (06:36→17:14)
[2022-02-08] MEDS: CARISOPRODOL 350 MG TAB PO SCH ×3 (06:36→21:57)
[2022-02-08] MEDS: D5W/SOD CHL 0.45%/KCL 20MEQ 1,000 ML IV SCH ×3 (06:37→18:48)
[2022-02-08 07:25] LABS: Basophils # (auto) 0.1 10 ^3/uL (0-0.2); Basophils % (auto) 0.3 % (0.0-2.0); Eosinophils # (auto) 0 10 ^3/uL (0-0.8); Eosinophils % (auto) 0.1 % (0.0-7.0); Hemoglobin 9.2 g/dL (12.2-16.2); Lymphocytes # (auto) 1.6 10 ^3/uL (0.4-5.4); Lymphocytes % (auto) 8.4 % (10.0-50.0); Mean Corpuscular Hemoglobin 28.7 pg (28.0-32.0); Mean Corpuscular Volume 86.9 fL (80.0-100.0); Monocytes # (auto) 1.5 10 ^3/uL (0-1.3); Monocytes % (auto) 7.8 % (0.0-12.0); Neutrophils # (auto) 15.8 10 ^3/uL (1.6-8.6); Neutrophils % (auto) 83.4 % (37.0-80.0); Red Blood Cells 3.22 10^6/uL (4.0-5.20); Red Cell Distribution Width 16.5 % (11.8-14.3)
[2022-02-08 07:32] LABS: BUN/Creatinine Ratio 21.6; Calcium 8.6 mg/dL (8.5-10.1); Potassium 3.8 mmol/L (3.5-5.1)
[2022-02-08 08:00] VITALS: BP 116/70
[2022-02-08] MEDS: Ensure HIGH Protein Chocolate 8oz Bottle PO SCH ×2 (08:57→18:02)
[2022-02-08 09:30] VITALS: BP 116/70
[2022-02-08] MEDS: DOCUSATE SOD 100 MG CAP PO SCH ×2 (10:32→21:56)
[2022-02-08] MEDS: ONDANSETRON ODT 4 MG TAB PO SCH (10:32)
[2022-02-08] MEDS: oxyCODONE ER 20 MG TAB PO SCH ×2 (10:33→21:57)
[2022-02-08] MEDS: ACETAMINOPHEN 325 MG TAB PO PRN (13:11)
[2022-02-08 13:30] VITALS: BP 127/74
[2022-02-08] MEDS ORDERED: ONDANSETRON ODT 4 MG TAB PO PRN (16:00)
[2022-02-08 17:01] VITALS: BP 106/70
[2022-02-08] MEDS: ATORVASTATIN 20 MG TAB PO SCH (21:56)
[2022-02-08 22:00] VITALS: BP 115/64
[2022-02-09] MEDS: PROPRANOLOL HCL 20 MG TAB PO SCH ×3 (00:20→22:00)
[2022-02-09] MEDS: ACETAMINOPHEN 325 MG TAB PO PRN ×2 (01:27→19:49)
[2022-02-09] MEDS: MORPHINE SULFATE 4 MG/ML SYR/VIAL IV PRN ×5 (04:14→23:23)
[2022-02-09 05:00] VITALS: BP 125/64
[2022-02-09] MEDS: MECLIZINE HCL 25 MG TAB PO SCH ×3 (06:00→22:15)
[2022-02-09] MEDS: PANTOPRAZOLE 40 MG TAB PO SCH ×3 (06:27→16:51)
[2022-02-09] MEDS: CARISOPRODOL 350 MG TAB PO SCH ×3 (06:27→22:12)
[2022-02-09] MEDS: D5W/SOD CHL 0.45%/KCL 20MEQ 1,000 ML IV SCH ×2 (06:40→22:12)
[2022-02-09] MEDS: Ensure HIGH Protein Chocolate 8oz Bottle PO SCH ×2 (08:00→18:00)
[2022-02-09 09:00] VITALS: BP 132/69
[2022-02-09] MEDS: oxyCODONE ER 20 MG TAB PO SCH ×2 (10:00→22:15)
[2022-02-09] MEDS: DOCUSATE SOD 100 MG CAP PO SCH ×2 (10:01→22:15)
[2022-02-09 13:00] VITALS: BP 130/70
[2022-02-09] MEDS ORDERED: KETOROLAC TROMETH 30 MG/ML 1ML VIAL IV ONE (16:45)
[2022-02-09 17:00] VITALS: BP 128/72
[2022-02-09 22:00] VITALS: BP 124/67
[2022-02-09] MEDS: ATORVASTATIN 20 MG TAB PO SCH (22:13)
[2022-02-10] MEDS ORDERED: KETOROLAC TROMETH 30 MG/ML 1ML VIAL IV ONE (01:00)
[2022-02-10 01:27] VITALS: BP 120/57
[2022-02-10 04:54] VITALS: BP 114/71
[2022-02-10] MEDS: PANTOPRAZOLE 40 MG TAB PO SCH ×3 (05:39→17:09)
[2022-02-10] MEDS: MECLIZINE HCL 25 MG TAB PO SCH ×3 (05:39→20:45)
[2022-02-10] MEDS: MORPHINE SULFATE 4 MG/ML SYR/VIAL IV PRN ×3 (05:40→21:27)
[2022-02-10] MEDS: CARISOPRODOL 350 MG TAB PO SCH ×3 (06:35→20:45)
[2022-02-10 09:00] VITALS: BP 134/70
[2022-02-10] MEDS: DOCUSATE SOD 100 MG CAP PO SCH ×2 (09:45→20:43)
[2022-02-10] MEDS: PROPRANOLOL HCL 20 MG TAB PO SCH ×2 (09:46→20:44)
[2022-02-10] MEDS: Ensure HIGH Protein Chocolate 8oz Bottle PO SCH ×2 (09:47→18:17)
[2022-02-10] MEDS: oxyCODONE ER 20 MG TAB PO SCH ×2 (09:47→20:43)
[2022-02-10 13:00] VITALS: BP 143/69
[2022-02-10 17:00] VITALS: BP 127/77
[2022-02-10] MEDS: ACETAMINOPHEN 325 MG TAB PO PRN (18:39)
[2022-02-10] MEDS: ATORVASTATIN 20 MG TAB PO SCH (20:44)
[2022-02-10 22:00] VITALS: BP 124/62
[2022-02-11] MEDS ORDERED: HYDROcodone-ACET 7.5/325MG TAB PO ONE (00:30)
[2022-02-11] MEDS: MORPHINE SULFATE 4 MG/ML SYR/VIAL IV PRN ×2 (01:36→05:39)
[2022-02-11 04:38] VITALS: BP 146/75
[2022-02-11] MEDS: MECLIZINE HCL 25 MG TAB PO SCH (06:00)
[2022-02-11] MEDS: CARISOPRODOL 350 MG TAB PO SCH (06:03)
[2022-02-11] MEDS: PANTOPRAZOLE 40 MG TAB PO SCH ×2 (06:04→10:40)
[2022-02-11 09:00] VITALS: BP 147/66
[2022-02-11] MEDS ORDERED: KETOROLAC TROMETH 30 MG/ML 1ML VIAL IV ONE (10:30)
[2022-02-11] MEDS: DOCUSATE SOD 100 MG CAP PO SCH (10:38)
[2022-02-11] MEDS: PROPRANOLOL HCL 20 MG TAB PO SCH (10:39)
[2022-02-11] MEDS: oxyCODONE ER 20 MG TAB PO SCH (10:40)
[2022-02-11] MEDS ORDERED: KETOROLAC TROMETH 30 MG/ML 1ML VIAL IV PRN (10:45)
[2022-02-11 11:29] VITALS: BP 147/66
== END 2022-02-11 12:00 | disposition home health service (06) | DRG 454 ==
LOC: SUR 06:33 → TELE 07:31 → TELE-CENTR 15:06 → CENTRAL 02-11 02:09
PROVIDERS: ADMIT Orthopaedic Surgery; ATTEND Internal Medicine
PROC: 0SG00AJ Fusion of Lumbar Vertebral Joint with Interbody Fusion Device, Posterior Approach, Anterior Column, Open Approach (ICD-10-PCS; principal; 2022-02-08)
PROC: 0SG1071 Fusion of 2 or more Lumbar Vertebral Joints with Autologous Tissue Substitute, Posterior Approach, Posterior Column, Open Approach (ICD-10-PCS; 2022-02-08)
PROC: 01NB0ZZ Release Lumbar Nerve, Open Approach (ICD-10-PCS; 2022-02-08)
PROC: 01NR0ZZ Release Sacral Nerve, Open Approach (ICD-10-PCS; 2022-02-08)
PROC: 00NY0ZZ Release Lumbar Spinal Cord, Open Approach (ICD-10-PCS; 2022-02-08)
PROC: 4A11X4G Monitoring of Peripheral Nervous Electrical Activity, Intraoperative, External Approach (ICD-10-PCS; 2022-02-08)
PROC: 8E0WXBZ Computer Assisted Procedure of Trunk Region (ICD-10-PCS; 2022-02-08)
DX: M48.061 Spinal stenosis, lumbar region without neurogenic claudication (principal); R71.0 Precipitous drop in hematocrit; M41.56 Other secondary scoliosis, lumbar region; M51.36 Other intervertebral disc degeneration, lumbar region; I10 Essential (primary) hypertension; E78.5 Hyperlipidemia, unspecified; Z20.822 Contact with and (suspected) exposure to COVID-19; Z82.3 Family history of stroke; Z82.49 Family history of ischemic heart disease and other diseases of the circulatory system; Z91.81 History of falling; Z95.2 Presence of prosthetic heart valve; I35.0 Nonrheumatic aortic (valve) stenosis
CPT/HCPCS: 36415; 72100; 76000; 80048; 80053; 81001; 85025; 85610; 85730; 86850; 86900; 86901; 87426; 97110; 97116; 97163; 97530; G0378; J0690; J1885; J2250; J2405; J2704; J3490; Q0162

== ENCOUNTER 2023-03-19 17:51 | Inpatient (IN) | payer MEDICARE, OTHER ==
[~2023-03-19] VITALS: Ht 160 cm; Wt 68.2 kg
[~2023-03-19 17:51] MED LIST changes: +MECL1TAB32 PO; -MECL25TA18 PO; -PROP40TA59 PO; +PROP40TA6 PO
[2023-03-19 18:49] LABS: Eosinophils # (auto) 0.2 10 ^3/uL (0-0.8); Lymphocytes # (auto) 1.8 10 ^3/uL (0.4-5.4); Monocytes # (auto) 0.8 10 ^3/uL (0-1.3); Nucleated Red Blood Cells % 0.1 %
[2023-03-19 18:51] LABS: Basophils # (auto) 0.2 10 ^3/uL (0-0.2); Basophils % (auto) 1.5 % (0.0-2.0); Eosinophils % (auto) 1.8 % (0.0-7.0); Lymphocytes % (auto) 17.4 % (10.0-50.0); Mean Corpuscular Hemoglobin 18.6 pg (28.0-32.0); Mean Corpuscular Hgb Conc. 29.2 g/dL (32.0-36.0); Mean Corpuscular Volume 63.8 fL (80.0-100.0); Monocytes % (auto) 7.6 % (0.0-12.0); Neutrophils # (auto) 7.3 10 ^3/uL (1.6-8.6); Neutrophils % (auto) 71.7 % (37.0-80.0); Red Blood Cells 3.45 10^6/uL (4.0-5.20); White Blood Cell 10.2 10^3/uL (4.4-10.8)
[2023-03-19 19:01] LABS: Red Cell Distribution Width 20.9 % (11.8-14.3)
[2023-03-19 19:04] LABS: Hemoglobin 6.4 g/dL (12.2-16.2)
[2023-03-19 19:11] LABS: INR 0.96 (0.9-1.15); Partial Thromboplastin Time 26.9 SEC (24.5-34.5); Prothrombin Time 10.1 sec (9.3-11.8)
[2023-03-19 19:21] LABS: Alanine Aminotransferase 12 U/L (7-40); Albumin 4.3 g/dL (3.2-4.8); Alkaline Phosphatase 91 U/L (46-116); Anion Gap 10 (5-15); Aspartate Aminotransferase 28 U/L (13-40); Bilirubin, Total 0.2 mg/dL (0.2-1.0); Calcium 9.1 mg/dL (8.7-10.4); Carbon Dioxide 21 mmol/L (20-30); Chloride 108 mmol/L (98-107); Glucose 92 mg/dL (74-106); Potassium 4.5 mmol/L (3.5-5.1); Sodium 139 mmol/L (136-145); Total Protein 7.3 g/dL (5.7-8.2)
[2023-03-19 19:24] LABS: BUN/Creatinine Ratio 20.3 (10.0-20.0); Blood Urea Nitrogen 15 mg/dL (9-23)
[2023-03-19 20:40] LABS: Anisocytosis Slight; Hypochromia Marked; Platelet Estimate Increased
[2023-03-19 21:41] LABS: Folate (Folic Acid) 22.14 ng/mL (>5.38)
[2023-03-19 21:53] LABS: % Iron Saturation 4.6 % (15-50)
[2023-03-19] MEDS ORDERED: DOCUSATE SOD 100 MG CAP PO PRN (22:15)
[2023-03-19] MEDS ORDERED: ACETAMINOPHEN 325 MG TAB PO PRN (22:15)
[2023-03-19] MEDS ORDERED: ONDANSETRON HCL 4 MG/2 ML VIAL IV PRN (22:15)
[2023-03-19] MEDS ORDERED: HYDROcodone-ACET 5/325MG TAB PO PRN (22:15)
[2023-03-19] MEDS ORDERED: RIZATRIPTAN BENZOATE 10 MG PO PRN (22:15)
[2023-03-19] MEDS ORDERED: SODIUM FERR GLUC 62.5MG/5ML 125 MG in SODIUM CHL 0.9% 100 ML IV SCH (22:15)
[2023-03-19 23:08] VITALS: PULSE 86; RESP 16; O2SAT 97
[2023-03-20] VITALS (14 sets, daily range): BP systolic 100–152; BP diastolic 45–81; PULSE 66–84; RESP 13–22; TEMP 97.6–99.2; O2SAT 94–98
[2023-03-20] MEDS: SODIUM CHLOR 0.9% PF (SALINE LOCK) 10ML VIAL/SYR IV SCH ×3 (05:30→22:58)
[2023-03-20] MEDS ORDERED: PATIENTS OWN MEDICATION (Omeprazole (Gnp Omeprazole) 40 MG) PO SCH (07:00)
[2023-03-20] MEDS: SODIUM FERR GLUC 62.5MG/5ML 125 MG in SODIUM CHL 0.9% 100 ML IV SCH ×2 (10:00→10:21)
[2023-03-20] MEDS: PANTOPRAZOLE 40 MG TAB PO SCH (10:21)
[2023-03-20 13:22] LABS: Basophils # (auto) 0.1 10 ^3/uL (0-0.2); Eosinophils # (auto) 0.2 10 ^3/uL (0-0.8); Neutrophils # (auto) 4.8 10 ^3/uL (1.6-8.6)
[2023-03-20 13:24] LABS: Basophils % (auto) 1.7 % (0.0-2.0); Eosinophils % (auto) 2.5 % (0.0-7.0); Hematocrit 31.3 % (36.0-46.0); Hemoglobin 9.6 g/dL (12.2-16.2); Lymphocytes # (auto) 1.5 10 ^3/uL (0.4-5.4); Lymphocytes % (auto) 21.6 % (10.0-50.0); Mean Corpuscular Hemoglobin 22.1 pg (28.0-32.0); Mean Corpuscular Hgb Conc. 30.5 g/dL (32.0-36.0); Mean Corpuscular Volume 72.4 fL (80.0-100.0); Monocytes # (auto) 0.5 10 ^3/uL (0-1.3); Monocytes % (auto) 6.9 % (0.0-12.0); Neutrophils % (auto) 67.3 % (37.0-80.0); Red Blood Cells 4.32 10^6/uL (4.0-5.20); White Blood Cell 7.2 10^3/uL (4.4-10.8)
[2023-03-20 13:27] LABS: Red Cell Distribution Width 27.4 % (11.8-14.3)
[2023-03-20] MEDS ORDERED: PATIENTS OWN MEDICATION (Rosuvastatin Calcium (Crestor) 1 TAB) PO SCH (22:00)
[2023-03-20] MEDS: ATORVASTATIN 20 MG TAB PO SCH (22:00)
[2023-03-21] MEDS ORDERED: GOLYTELY 4L KIT PO ONE ×2 (00:15→12:00)
[2023-03-21 05:00] VITALS: BP 144/65; PULSE 74; RESP 16; TEMP 97.6; O2SAT 93
[2023-03-21 06:52] LABS: Eosinophils # (auto) 0.2 10 ^3/uL (0-0.8); Hemoglobin 9.8 g/dL (12.2-16.2); Nucleated Red Blood Cells % 0.1 %; White Blood Cell 6.2 10^3/uL (4.4-10.8)
[2023-03-21 06:54] LABS: Basophils # (auto) 0.1 10 ^3/uL (0-0.2); Basophils % (auto) 1.2 % (0.0-2.0); Eosinophils % (auto) 3.4 % (0.0-7.0); Hematocrit 32.3 % (36.0-46.0); Lymphocytes # (auto) 1.6 10 ^3/uL (0.4-5.4); Mean Corpuscular Hgb Conc. 30.4 g/dL (32.0-36.0); Mean Corpuscular Volume 72.3 fL (80.0-100.0); Monocytes # (auto) 0.8 10 ^3/uL (0-1.3); Monocytes % (auto) 12.8 % (0.0-12.0); Neutrophils # (auto) 3.5 10 ^3/uL (1.6-8.6); Neutrophils % (auto) 56.6 % (37.0-80.0); Red Blood Cells 4.47 10^6/uL (4.0-5.20); Red Cell Distribution Width 28.1 % (11.8-14.3)
[2023-03-21 08:00] VITALS: BP 131/70; PULSE 84; RESP 19; TEMP 97.9; O2SAT 95
[2023-03-21 09:00] VITALS: BP 131/70; PULSE 84; RESP 19; TEMP 97.9; O2SAT 95
[2023-03-21] MEDS: SODIUM FERR GLUC 62.5MG/5ML 125 MG in SODIUM CHL 0.9% 100 ML IV SCH (10:00)
[2023-03-21] MEDS ORDERED: CYCLOBENZAPRINE HCL 10 MG TAB PO ONE (12:00)
[2023-03-21] MEDS ORDERED: LORazepam 0.5 MG TAB PO PRN (12:00)
[2023-03-21] MEDS ORDERED: GABAPENTIN 100 MG CAP PO ONE (12:00)
[2023-03-21] MEDS: PANTOPRAZOLE 40 MG TAB PO SCH (13:19)
[2023-03-21] MEDS ORDERED: DIVA1TAB58 PO (13:52)
[2023-03-21] MEDS ORDERED: ASPI-543 PO (13:52)
[2023-03-21] MEDS ORDERED: CYCL-839 PO (13:55)
[2023-03-21] MEDS ORDERED: GABA-1308 PO (13:55)
[2023-03-21] MEDS ORDERED: DEXA0.5S2 PO (13:55)
[2023-03-21] MEDS: CYCLOBENZAPRINE HCL 10 MG TAB PO SCH ×2 (13:56→21:50)
[2023-03-21] MEDS: GABAPENTIN 100 MG CAP PO SCH ×2 (13:56→21:50)
[2023-03-21] MEDS: SODIUM CHLOR 0.9% PF (SALINE LOCK) 10ML VIAL/SYR IV SCH ×2 (14:00→21:52)
[2023-03-21] MEDS: HYDROcodone-ACET 10/325MG TAB PO PRN ×2 (14:19→20:01)
[2023-03-21] MEDS ORDERED: SUMAtriptan SUCCINATE 25 MG TAB PO ONE (14:30)
[2023-03-21 17:00] VITALS: BP 102/76; PULSE 92; RESP 22; TEMP 97.5; O2SAT 93
[2023-03-21 20:00] VITALS: BP 131/70; PULSE 80; PULSE 84; RESP 18; RESP 19; TEMP 97.9; O2SAT 94
[2023-03-21] MEDS: ATORVASTATIN 20 MG TAB PO SCH (21:50)
[2023-03-21 22:42] VITALS: BP 147/54; PULSE 76; RESP 20; TEMP 98; O2SAT 93
[2023-03-22] MEDS: HYDROcodone-ACET 10/325MG TAB PO PRN ×2 (01:35→05:25)
[2023-03-22 05:00] VITALS: BP 138/63; PULSE 83; RESP 20; TEMP 97.8; O2SAT 93
[2023-03-22] MEDS: SODIUM CHLOR 0.9% PF (SALINE LOCK) 10ML VIAL/SYR IV SCH (05:25)
[2023-03-22] MEDS: CYCLOBENZAPRINE HCL 10 MG TAB PO SCH (05:26)
[2023-03-22] MEDS: GABAPENTIN 100 MG CAP PO SCH (05:27)
[2023-03-22 06:11] LABS: Basophils # (auto) 0.1 10 ^3/uL (0-0.2); Basophils % (auto) 0.9 % (0.0-2.0); Eosinophils # (auto) 0.2 10 ^3/uL (0-0.8); Eosinophils % (auto) 2.9 % (0.0-7.0); Hematocrit 31.4 % (36.0-46.0); Hemoglobin 9.9 g/dL (12.2-16.2); Lymphocytes # (auto) 2.2 10 ^3/uL (0.4-5.4); Mean Corpuscular Hemoglobin 22.4 pg (28.0-32.0); Mean Corpuscular Hgb Conc. 31.6 g/dL (32.0-36.0); Mean Corpuscular Volume 70.9 fL (80.0-100.0); Monocytes # (auto) 0.8 10 ^3/uL (0-1.3); Monocytes % (auto) 12.2 % (0.0-12.0); Neutrophils # (auto) 3.5 10 ^3/uL (1.6-8.6); Nucleated Red Blood Cells % 0.2 %; Red Blood Cells 4.43 10^6/uL (4.0-5.20); White Blood Cell 6.8 10^3/uL (4.4-10.8)
[2023-03-22 06:12] LABS: Red Cell Distribution Width 27.8 % (11.8-14.3)
[2023-03-22 08:00] VITALS: BP 154/66; PULSE 66; RESP 20; TEMP 97.8; O2SAT 93
[2023-03-22 09:00] VITALS: BP 154/66; PULSE 66; RESP 20; TEMP 97.8; O2SAT 93
[2023-03-22] MEDS: PANTOPRAZOLE 40 MG TAB PO SCH (09:19)
[2023-03-22] MEDS: SODIUM FERR GLUC 62.5MG/5ML 125 MG in SODIUM CHL 0.9% 100 ML IV SCH (10:47)
[2023-03-22 14:41] LABS: Anisocytosis Moderate; Hypochromia Moderate; Platelet Estimate Adequate
== END 2023-03-22 13:09 | disposition left against medical advice (07) | DRG 811 ==
LOC: ER 17:51 → WEST WING 22:17 → OVERFLOW 22:17 → WEST WING 03-20 04:35
PROVIDERS: ADMIT Internal Medicine; ATTEND Family Medicine
PROC: 30233N1 Transfusion of Nonautologous Red Blood Cells into Peripheral Vein, Percutaneous Approach (ICD-10-PCS; principal; 2023-03-20)
DX: D62 Acute posthemorrhagic anemia (principal); K25.4 Chronic or unspecified gastric ulcer with hemorrhage; F17.210 Nicotine dependence, cigarettes, uncomplicated; G89.29 Other chronic pain; D50.9 Iron deficiency anemia, unspecified; M54.50 Low back pain, unspecified; M54.9 Dorsalgia, unspecified; F41.9 Anxiety disorder, unspecified; Z53.29 Procedure and treatment not carried out because of patient's decision for other reasons; I25.10 Atherosclerotic heart disease of native coronary artery without angina pectoris; Z88.5 Allergy status to narcotic agent; Z88.2 Allergy status to sulfonamides; Z79.899 Other long term (current) drug therapy; Z87.442 Personal history of urinary calculi; Z88.3 Allergy status to other anti-infective agents; Z79.891 Long term (current) use of opiate analgesic; Z82.49 Family history of ischemic heart disease and other diseases of the circulatory system; Z82.3 Family history of stroke; Z86.73 Personal history of transient ischemic attack (TIA), and cerebral infarction without residual deficits
CPT/HCPCS: 36415; 80053; 82607; 82728; 82746; 83540; 83550; 83615; 84484; 85025; 85045; 85610; 85730; 86850; 86900; 86901; 86920; G0378